=== PATIENT | female | born 1990 | race Caucasian/White ===

== ENCOUNTER → 2017-07-12 | Outpatient (CLI) | payer MEDICAID ==
[~2017-07-12] MED LIST: IBUP800T37 PO; OXYC-865 PO; PREN-127 PO
--- NOTE | 2017-07-15 11:46 | RADIOLOGY IMAGING REPORT ---
[place] [facility] [place] NAME: JACQUELINE NAVARRETE : [id number] MR: [id number] V: [id number] EXAM DATE: ORDERING PHYSICIAN: ABEBE HICKS TECHNOLOGIST: Angeles Soliman PROCEDURE:US RIGHT BREAST COMPLETE COMPARISON:None. INDICATIONS:rt breast lump/Palpable lump Rt breast upper outer quadrant. The patient is 10 weeks . FINDINGS: In the location of the patient's palpable findings in the approximate 9-10 o'clock position of the Right breast there a vague ill defined hypoechoic region that appears different than the surrounding breast tissue. Comparison images were taken of the upper outer quadrant of the Left breast which did not demonstrate a similar echogenicity. This could represent a focal area of inflammation however malignancy is not entirely excluded. Since the patient is 10 weeks it is opted not to do a mammogram today however close clinical follow-up is recommended and the patient should return for a repeat Right breast Ultrasound before she moves out of town on August 03, 2017 DIAGNOSTIC CATEGORY 3--PROBABLY BENIGN FINDING. RECOMMENDATIONS: CLINICAL EVALUATION. ONE MONTH FOLLOW-UP ULTRASOUND: RIGHT BREAST. TO BE PERFORMED BEFORE THE PATIENT MOVES ON AUGUST 03, 2017. IMPRESSION: BIRADS 3: Probably benign finding The patient should return for a follow-up Right breast Ultrasound before she moves out of town on August 03, 2017 to evaluate the ill defined hypoechoic region in the 9-10 o'clock position of the Right breast. Clinical follow-up also recommended. Dictated by: Francie Acuna M.D. on 07/12/2017 at 14:35 Transcribed by: MICAH on 07/15/2017 at 8:49 Approved by: Francie Acuna M.D. on 07/15/2017 at 11:45 [facility]
== END ==
LOC: US 04:07
PROVIDERS: ATTEND Obstetrics & Gynecology
DX: N63.11 Unspecified lump in the right breast, upper outer quadrant (principal); Z3A.10 10 weeks gestation of pregnancy

== ENCOUNTER 2017-07-25 23:06 | Inpatient (IN) | payer MEDICAID ==
[~2017-07-25] VITALS: Ht 160 cm; Wt 69.4 kg
[~2017-07-25 23:06] MED LIST changes: -HYDR2TAB4 PO; -MISO200T62 PO
--- NOTE | 2017-07-25 23:19 | ER Report ---
History and Physical Time Seen By MD: 23:19 Hx. of Stated Complaint: PATIENT HAS KNOWN MISCARRIAGE, PATIENT STATES CONTINOUS BLEEDING STARTED ABOUT 2029. PATIENT HAS HAD SMALL AMOUTN OF INTERMITENT BLEEDING SINCE SATURDAY HPI/ROS CHIEF COMPLAINT: miscarriage HISTORY OF PRESENT ILLNESS: This is a 27 year old female. 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 She has had small amount of intermittent bleeding since Saturday. Tonight at 2029 had onset of severe continuous bleeding, soaking multiple pads. She had a syncopal episode at home. Initial blood pressure here was 73 systolic. She was pale and weak and dizzy with sitting. Having lower abdominal cramping associated with this. 2 liters of normal saline were given and blood pressures in the 90s to 100s now. Has had a prior miscarriage with D&C last November, admitted here by Dr. Wright. Denies chest pain or shortness of breath. Has not had any problems with urination or bowels. Allergies: Coded Allergies: Penicillins (Verified Allergy, Intermediate, VOMITING., 07/25/17) Home Meds Discontinued Reported Medications Vits W-Ca,Fe,Fa(<1MG) ( VITAMINS) 1 Each Tablet, 1 EACH PO DAILY, TAB 12/01/16 Discontinued Scripts Oxycodone Hcl/Acetaminophen (PERCOCET 5-325 MG TABLET) 1 Each Tablet, 1-2 TAB PO Q4H Y for pain, #20 TAB 0 Refills Prov:DEMOND WRIGHT MD 12/02/16 Ibuprofen (IBUPROFEN) 800 Mg Tablet, 1 TAB PO Q8H Y for pain, #30 TAB 0 Refills TAKE WITH FOOD EVERY 8 HOURS Prov:DEMOND WRIGHT MD 12/02/16 Past Medical/Surgical History Right ankle surgery. Tonsillectomy. Reviewed Nurses Notes: Yes Hx Smoking: Yes Smoking Status: Former Smoker Exposure to Second Hand Smoke?: No Hx Alcohol Use: No Constitutional Vital Sign - Last 24 Hours 07/25/17 07/25/17 07/25/17 07/25/17 23:08 23:20 23:21 23:30 Temp 98.3 Pulse 68 73 Resp 23 22 B/P (MAP) 73/52 102/73 (83) 104/60 (75) Pulse Ox 100 98 O2 Delivery Room Air 07/25/17 07/25/17 07/26/17 07/26/17 23:36 23:51 00:00 00:06 Pulse 75 89 72 Resp 15 11 21 B/P (MAP) 97/65 (76) Pulse Ox 98 100 100 07/26/17 07/26/17 07/26/17 07/26/17 00:21 00:29 00:34 00:49 Pulse 81 71 78 82 Resp 20 23 22 19 Pulse Ox 100 07/26/17 07/26/17 01:00 01:04 Pulse 75 Resp 22 B/P (MAP) 100/59 (73) Physical Exam General Appearance: The patient is alert, is very anxious. Eyes: Pupils equal and round no injection. ENT: Moist mucous membranes. Respiratory: Breathing is normal, without distress. Cardiac: Tachycardia, normal rhythm. Gastrointestinal: Abdomen is tender in lower abdomen. Skin: No bruising or rashes. Pelvic exam: The vulva was normal no lesions. The vagina has significant amount of blood. Evacuated multiple clots from the vagina, but no identified products of conception. The cervix was pointing downward into a pool of blood. This was soaked up multiple times with gauze and ring forceps, but the blood puddle would form again right away hiding the cervical os from view. The uterus enlarged and tender. The adnexa had no masses. 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 DIFFERENTIAL DIAGNOSIS: After history and physical exam differential diagnosis was considered for incomplete miscarriage Medical Decision Making Data Points Result Diagram: 07/26/17 0009 07/26/17 0009 Laboratory Hematology Test 07/26/17 00:09 Red Blood Count 3.69 M/uL (4.17-5.56) Mean Corpuscular Volume 88.0 fL (80.0-96.0) Mean Corpuscular Hemoglobin 30.1 pg (26.0-33.0) Mean Corpuscular Hemoglobin Concent 34.2 g/dL (32.0-36.0) Red Cell Distribution Width 13.5 % (11.5-14.5) Mean Platelet Volume 7.1 fL (7.2-11.1) Neutrophils (%) (Auto) 67.7 % (39.4-72.5) Lymphocytes (%) (Auto) 24.9 % (17.6-49.6) Monocytes (%) (Auto) 5.8 % (4.1-12.4) Eosinophils (%) (Auto) 1.2 % (0.4-6.7) Basophils (%) (Auto) 0.4 % (0.3-1.4) Nucleated RBC Relative Count (auto) 0.0 /100WBC Neutrophils # (Auto) 7.0 K/uL (2.0-7.4) Lymphocytes # (Auto) 2.6 K/uL (1.3-3.6) Monocytes # (Auto) 0.6 K/uL (0.3-1.0) Eosinophils # (Auto) 0.1 K/uL (0.0-0.5) Basophils # (Auto) 0.0 K/uL (0.0-0.1) Nucleated RBC Absolute Count (auto) 0.01 K/uL Prothrombin Time 14.5 seconds (12.0-14.4) Prothromb Time International Ratio 1.12 Activated Partial Thromboplast Time 25 seconds (23-35) Sodium Level 139 mmol/L (137-145) Potassium Level 3.4 mmol/L (3.5-5.0) Chloride Level 109 mmol/L (98-107) Carbon Dioxide Level 17 mmol/L (22-31) Blood Urea Nitrogen 14 mg/dl (7-18) Creatinine 0.60 mg/dl (0.52-1.04) Glomerular Filtration Rate Calc > 60.0 Random Glucose 92 mg/dl (75-110) Calcium Level 7.9 mg/dl (8.4-10.2) Total Bilirubin 0.2 mg/dl (0.2-1.3) Aspartate Amino Transf (AST/SGOT) 17 U/L (0-35) Alanine Aminotransferase (ALT/SGPT) 22 U/L (0-56) Alkaline Phosphatase 75 U/L (0-126) Total Protein 5.4 gm/dl (6.3-8.2) Albumin 3.0 g/dl (3.5-5.0) Human Chorionic Gonadotropin, Qual Positive (NEGATIVE) Human Chorionic Gonadotropin, Quant 2716 mIU/ml Chemistry Test 07/26/17 00:09 White Blood Count 10.3 k/uL (4.5-11.0) Red Blood Count 3.69 M/uL (4.17-5.56) Hemoglobin 11.1 g/dL (12.0-16.0) Hematocrit 32.5 % (34.0-47.0) Mean Corpuscular Volume 88.0 fL (80.0-96.0) Mean Corpuscular Hemoglobin 30.1 pg (26.0-33.0) Mean Corpuscular Hemoglobin Concent 34.2 g/dL (32.0-36.0) Red Cell Distribution Width 13.5 % (11.5-14.5) Platelet Count 199 K/uL (150-450) Mean Platelet Volume 7.1 fL (7.2-11.1) Neutrophils (%) (Auto) 67.7 % (39.4-72.5) Lymphocytes (%) (Auto) 24.9 % (17.6-49.6) Monocytes (%) (Auto) 5.8 % (4.1-12.4) Eosinophils (%) (Auto) 1.2 % (0.4-6.7) Basophils (%) (Auto) 0.4 % (0.3-1.4) Nucleated RBC Relative Count (auto) 0.0 /100WBC Neutrophils # (Auto) 7.0 K/uL (2.0-7.4) Lymphocytes # (Auto) 2.6 K/uL (1.3-3.6) Monocytes # (Auto) 0.6 K/uL (0.3-1.0) Eosinophils # (Auto) 0.1 K/uL (0.0-0.5) Basophils # (Auto) 0.0 K/uL (0.0-0.1) Nucleated RBC Absolute Count (auto) 0.01 K/uL Prothrombin Time 14.5 seconds (12.0-14.4) Prothromb Time International Ratio 1.12 Activated Partial Thromboplast Time 25 seconds (23-35) Glomerular Filtration Rate Calc > 60.0 Calcium Level 7.9 mg/dl (8.4-10.2) Total Bilirubin 0.2 mg/dl (0.2-1.3) Aspartate Amino Transf (AST/SGOT) 17 U/L (0-35) Alanine Aminotransferase (ALT/SGPT) 22 U/L (0-56) Alkaline Phosphatase 75 U/L (0-126) Total Protein 5.4 gm/dl (6.3-8.2) Albumin 3.0 g/dl (3.5-5.0) Human Chorionic Gonadotropin, Qual Positive (NEGATIVE) Human Chorionic Gonadotropin, Quant 2716 mIU/ml Coagulation Test 07/26/17 00:09 Prothrombin Time 14.5 seconds Prothromb Time International Ratio 1.12 Activated Partial Thromboplast Time 25 seconds EKG/Imaging Imaging OB Ultrasound < 14 weeks Additional Pertinent history: Miscarriage COMPARISON STUDIES: None available FINDINGS: Uterus: Heterogeneous vascular debris within a thickened endometrium, likely related to retained products of conception or in progress. Maternal ovaries: Unremarkable Adnexa: No adnexal mass lesion or focal abnormality. Free pelvic fluid: none IMPRESSION: No live intrauterine gestation. There is heterogeneous vascular debris within a thickened endometrium, likely related to retained products of conception/ in progress. Follow-up beta hCG and pelvic ultrasound as clinically indicated. Report Dictated By: Dago Arellano MD at 07/26/2017 1:50 AM ED Course/Re-evaluation Clinical Indication for ER IV: Hydration, IV Access ED Course After initial evaluation, 2 liters of normal saline were infused rapidly. The blood pressures improved and she felt a little better. Pelvic exam as noted above. Patient is Opositive blood type; type and screen done. Ultrasound as noted above, consistent with incomplete . Discussed with Dr. Tan and recommended admission and Dr. Tan agreed to admit. Will give Cytotech 400mcg oral dose now and 200mcg every 6 hours. NPO except meds and pad counts. Decision to Disposition Date: Jul 26, 2017 Decision to Disposition Time: 01:51 Depart Departure Latest Vital Signs Vital Signs Date Time Temp Pulse Resp B/P (MAP) Pulse Ox O2 Delivery O2 Flow Rate FiO2 07/26/17 01:04 75 22 07/26/17 01:00 100/59 (73) 07/26/17 00:21 100 07/25/17 23:08 98.3 Room Air Impression: Primary Impression: Incomplete Additional Impression: Hypotension Condition: Condition Unchanged Disposition: Admitted from ER Problem Qualifiers Additional Impression: Hypotension Hypotension type: other hypotension type Qualified Codes: I95.89 - Other hypotension CECI LOPEZ MD Jul 25, 2017 23:19
[2017-07-25] MEDS ORDERED: EMS NS 0.9%(*) 1000 ML BAG 1,000 ML IV ONE ×2 (23:25)
[2017-07-26] VITALS (52 sets, daily range): BP systolic 77–108; BP diastolic 35–81; Ht 160 cm; Wt 69.4 kg
[2017-07-26 00:25] LABS: PLATELET COUNT, AUTOMATED 199 K/uL (150-450)
[2017-07-26 00:26] LABS: INR 1.12
[2017-07-26] MEDS ORDERED: MISOPROSTOL 200 MCG TAB PO ONE (01:35)
--- NOTE | 2017-07-26 01:57 | RADIOLOGY IMAGING REPORT ---
FACILITY: [facility] - [place] PATIENT NAME: Mary Carmen Martinez : 1990 MR: [id number] V: [id number] EXAM DATE: ORDERING PHYSICIAN: CECI LOPEZ TECHNOLOGIST: Location: [facility] - [place] Patient: Mary Carmen Martinez : 1990 Visit/Account:[id number] Date of Sevice: 07/25/2017 OB Ultrasound < 14 weeks Additional Pertinent history: Miscarriage COMPARISON STUDIES: None available FINDINGS: Uterus: Heterogeneous vascular debris within a thickened endometrium, likely related to retained prod ucts of conception or in progress. Maternal ovaries: Unremarkable Adnexa: No adnexal mass lesion or focal abnormality. Free pelvic fluid: none IMPRESSION: No live intrauterine gestation. There is heterogeneous vascular debris within a thickened endometrium , likely related to retained products of conception/ in progress. Follow-up beta hCG and pelv ic ultrasound as clinically indicated. Report Dictated By: Dago Arellano MD at 07/26/2017 1:50 AM Report E-Signed By: Dago Arellano MD at 07/26/2017 1:53 AM WSN:[id number]
[2017-07-26] MEDS ORDERED: HYDROmorphone HCL 2 MG/ML SDV IVP PRN (02:00)
[2017-07-26] MEDS ORDERED: HYDROmorphone HCL 2 MG TAB PO PRN (02:00)
[2017-07-26] MEDS ORDERED: LR(*) 1000 ML BAG 1,000 ML IV PRN (02:05)
[2017-07-26] MEDS ORDERED: DLR(*) 1000 ML BAG 1,000 ML IV ONE (02:07)
[2017-07-26] MEDS ORDERED: LR(*) 1000 ML BAG 1,000 ML ONE (02:10)
[2017-07-26] MEDS ORDERED: MORPHINE 4 MG/ML SDV IVP PRN (02:30)
[2017-07-26] MEDS ORDERED: ONDANSETRON 4 MG/2 ML VIAL IVP PRN (02:30)
[2017-07-26] MEDS: DLR(*) 1000 ML BAG 1,000 ML IV PRN ×2 (02:41→09:06)
[2017-07-26] MEDS: HYDROmorphone HCL 2 MG TAB PO PRN ×2 (03:13→08:08)
[2017-07-26 07:03] LABS: PLATELET COUNT, AUTOMATED 192 K/uL (150-450)
[2017-07-26] MEDS ORDERED: MISOPROSTOL 200 MCG TAB PO SCH (08:00)
[2017-07-26] MEDS: MISOPROSTOL 200 MCG TAB PO SCH ×2 (08:07→15:17)
--- NOTE | 2017-07-26 10:29 | History & Physical ---
History of Present Illness Age of Patient: 27 : 3 Para or TPAL: 1 Estimated Gestational Age: 10 Chief Complaint miscarriage History of Present Illness presented through the ER with bleeding and feeling faint. She arrived bleeding heavily vaginally and u/s showing vacular thickened endometrium c/w SAB in progress. She had low BP upon arrival as well which responded to fluid resuscitation. She was observed overnight with oral Cytotec to manage and bleeding has significantly decreased. Pt reports she is moving to [place] in 1 week and does not want this to be an issue during this transition. She is requesting definitive resolution. She has had one prior miscarriage treated with dilation and curettage and so is familiar with this method of management. Her blood type is positive. Her latest Hgb was 8.9 dropping 2 grams from her initial. Currently she feels weak and lethargic and is pale. History Allergies: Coded Allergies: Penicillins (Verified Allergy, Intermediate, VOMITING., 07/25/17) Social History: Pt and her significant other just moved from [place], as he was admitted to the [facility]. Med Rec Home Meds Discontinued Reported Medications Vits W-Ca,Fe,Fa(<1MG) ( VITAMINS) 1 Each Tablet, 1 EACH PO DAILY, TAB 12/01/16 Discontinued Scripts Oxycodone Hcl/Acetaminophen (PERCOCET 5-325 MG TABLET) 1 Each Tablet, 1-2 TAB PO Q4H Y for pain, #20 TAB 0 Refills Prov:DEMOND DELR IO MD 12/02/16 Ibuprofen (IBUPROFEN) 800 Mg Tablet, 1 TAB PO Q8H Y for pain, #30 TAB 0 Refills TAKE WITH FOOD EVERY 8 HOURS Prov:DEMOND DEL RIO MD 12/02/16 Review of Systems All Systems Reviewed/Normal: Yes, Except as Noted Other as per HPI Exam General Exam Vital Signs Vital Signs Date Time Temp Pulse Resp B/P (MAP) Pulse Ox O2 Delivery O2 Flow Rate FiO2 07/26/17 10:07 54 16 78/41 (53) 100 Room Air 07/26/17 07:15 98.2 General Apperance: Alert/Awake/No Acute Distress, Other (pale) Neuro: No Gross deficits Cardiovascular: Regular Rate and Rhythm Respiratory: No Respiratory Distress, Clear to Auscultation Abdomen: Soft, Non-Tender, Non-Distended Integumentary: Skin Intact without Lesions or Rash, Pallor Psychological: Alert & Oriented X3, Appropriate Mood & Affect Medical Decision Making Data Points Result Diagram: 07/26/17 0620 07/26/17 0009 VTE Prophylasis: Adult Deep Vein Thrombosis/Pulmonary: No Pharmacological Contraindicati: Pt at Low Risk for VTE Mechanical Contraindications: Pt at Low Risk for VTE Assessment and Plan Problems: (1) Incomplete Status: Acute Assessment & Plan: Reviewed the risks and management of this problem and pt requesting definitive resolution. Considering her already blood loss, I think this is a good idea. Weighing risks/benefits of transfusion and will get blood count now to see where she is at. Planning dilation and suction curettage. ABEBE HICKS MD Jul 26, 2017 10:29
[2017-07-26 10:30] LABS: PLATELET COUNT, AUTOMATED 199 K/uL (150-450)
[2017-07-26] MEDS ORDERED: NORMOSOL R SOLN(*) 1000 ML BAG 1,000 ML IV ONE (10:35)
[2017-07-26] MEDS ORDERED: FAMOTIDINE 20 MG TAB PO ONE (11:10)
[2017-07-26] MEDS ORDERED: NS(*) 0.9% 500 ML BAG 500 ML IV PRN (11:10)
[2017-07-26] MEDS ORDERED: MIDAZOLAM 2 MG/2 ML VIAL IVP PRN (11:10)
[2017-07-26] MEDS ORDERED: cefOXitin/DEX(*) 2GM/50ML PREM 50 ML IVPB ONE (12:00)
--- NOTE | 2017-07-26 12:33 | RADIOLOGY IMAGING REPORT ---
FACILITY: [facility] PATIENT NAME: Mary Carmen Martinez : 1990 MR: [id number] V: [id number] EXAM DATE: ORDERING PHYSICIAN: ABEBE HICKS TECHNOLOGIST: [place] [facility] [place] Carmen [place] : 1990 Visit/Account:[id number] Date of Sevice: 07/26/2017 OB Ultrasound < 14 weeks Additional Pertinent history: Suspected miscarriage. COMPARISON STUDIES: 07/26/2017. FINDINGS: Gestational sac: Not visualized. Yolk sac: Not visualized. pole: Not visualized. Uterus: Uterus shows no focal normality. The endometrium shows debris with color-flow present which c ould be residual blood products. No well-defined lesion or fluid. Maternal ovaries: Right ovary is normal normal blood flow. Left ovary is not visualized. Adnexa: No adnexal mass lesion or focal abnormality. Free pelvic fluid: none IMPRESSION: 1. No indication of intrauterine or extrauterine . There is some debris in the endometrium w ith some color flow which could be due to blood products. Suggest follow-up clinically and laboratory values to assess for early . 2. Left ovary was not visualized. Report Dictated By: Too Valentin at 07/26/2017 12:26 PM Report E-Signed By: Too Valentin at 07/26/2017 12:29 PM WSN:[id number]
[2017-07-26] MEDS ORDERED: LIDOCAINE/SOD BICARB 8.4% SYR ONE (12:43)
[2017-07-26] MEDS ORDERED: SUCCINYLCHOL CHL 200MG/10ML VL ONE (13:23)
[2017-07-26] MEDS ORDERED: PROPOFOL EMUL(*) 10MG/ML 20 ML 20 ML ONE (13:23)
[2017-07-26] MEDS ORDERED: ONDANSETRON 4 MG/2 ML VIAL ONE (13:23)
[2017-07-26] MEDS ORDERED: LIDOCAINE MPF 1% 5 ML VIAL ONE (13:23)
[2017-07-26] MEDS ORDERED: DEXAMETHASONE SOD PHOS 10MG/ML ONE (13:23)
--- NOTE | 2017-07-26 13:46 | Post Operative Note ---
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
--- NOTE | 2017-07-26 13:59 | OPERATIVE REPORT 1 ---
EVENT DATE: July 26, 2017 SURGEON: Catarino Lowery MD ANESTHESIOLOGIST: Modesto Buitrago MD ANESTHESIA: General LMA PREOPERATIVE DIAGNOSIS Incomplete spontaneous . POSTOPERATIVE DIAGNOSIS Incomplete spontaneous . PROCEDURE PERFORMED Suction dilation and curettage. ESTIMATED BLOOD LOSS Minimal. FLUIDS 350 mL IV crystalloid plus transfusing 2 units of packed red blood cells. FINDINGS Uterus retroverted, sounded to a depth of 9 cm. Regular products of conception evacuated. PROCEDURE IN DETAIL The patient was brought to the operating room with a working IV, placed in the dorsal supine position, and she was placed under general LMA anesthesia and moved to the dorsal lithotomy position. She was prepped and draped in the usual sterile fashion. Weighted speculum was placed in the vagina. The cervix was grasped on the anterior lip with a single tooth tenaculum. It was sounded to a depth of 9 cm, retroverted, and 9 curved suction curette was selected and assembled. The cervix was grasped on the anterior lip with a single tooth tenaculum, and the cervix was carefully dilated to a size 10 Hegar dilator. The curved suction curette was passed through the cervix into the uterus and suction was applied to a pressure of 40 mmHg and rotated about while it was carefully withdrawn. There were products of conception and clot evacuated. A sharp bovine curette was used to curettage all four quadrants of the uterus until gritty texture was palpable. An additional pass with the curved suction curette completed evacuation with no visible complications and scant amount of bleeding upon completion. All instruments were removed from the uterus and the cervix. She tolerated the procedure well. Speculum was removed. The patient was returned to the dorsal supine position, awakened from general anesthesia in stable condition and taken to recovery. [facility]
[2017-07-26] MEDS ORDERED: MISO200T62 PO (14:02)
[2017-07-26] MEDS ORDERED: HYDR2TAB4 PO (14:02)
== END 2017-07-26 19:00 | disposition home or self-care (01) | DRG 770 ==
LOC: ER 23:13 → PED 07-26 01:48
PROVIDERS: ADMIT Obstetrics & Gynecology; ATTEND Obstetrics & Gynecology
PROC: 30233N1 Transfusion of Nonautologous Red Blood Cells into Peripheral Vein, Percutaneous Approach (ICD-10-PCS; 2017-07-26)
PROC: 10D17ZZ Extraction of Products of Conception, Retained, Via Natural or Artificial Opening (ICD-10-PCS; principal; 2017-07-26 13:10)
DX: O03.1 Delayed or excessive hemorrhage following incomplete spontaneous abortion (principal); I95.9 Hypotension, unspecified; R55 Syncope and collapse; Y92.009 Unspecified place in unspecified non-institutional (private) residence as the place of occurrence of the external cause; Z88.0 Allergy status to penicillin; Z87.891 Personal history of nicotine dependence; Z3A.14 14 weeks gestation of pregnancy
CPT/HCPCS: 36415; 76801; 76817; 82040; 82247; 82310; 82374; 82435; 82565; 82947; 84075; 84132; 84155; 84295; 84450; 84460; 84520; 84702; 84703; 85025; 85610; 85730; 86850; 86900; 86901; 86920; 88305; 96360; 99285; J0330; J0694; J1100; J2001; J2405; J2704; J7040; J7120; P9016

== ENCOUNTER → 2017-07-25 | Outpatient (CLI) | payer MEDICAID ==
[~2017-07-25] MED LIST changes: +HYDR2TAB4 PO; +MISO200T62 PO
[2017-07-26 09:10] VITALS: BMI 27.1
== END ==
LOC: AMB 22:42
PROVIDERS: ATTEND Nurse Practitioner
DX: N93.9 Abnormal uterine and vaginal bleeding, unspecified (principal); R10.9 Unspecified abdominal pain; M54.9 Dorsalgia, unspecified; R53.1 Weakness; Z3A.12 12 weeks gestation of pregnancy
CPT/HCPCS: A0425; A0427

== ENCOUNTER → 2017-07-30 | Outpatient (CLI) | payer MEDICAID ==
[2017-07-26 09:10] VITALS: BMI 27.1
[~2017-07-30] MED LIST changes: +HYDR2TAB4 PO; +MISO200T62 PO
--- NOTE | 2017-07-30 13:57 | RADIOLOGY IMAGING REPORT ---
[place] [facility] [place]IENT NAME: JACQUELINE NAVARRETE : [id number] MR: [id number] V: [id number] EXAM DATE: [id number] ORDERING PHYSICIAN: ABEBE HICKS TECHNOLOGIST: Fox Pizano PROCEDURE:US RIGHT BREAST COMPARISON:Ultrasound 07/12/17 INDICATIONS:ONE MONTH F/U FINDINGS: An Ultrasound of the Right breast 9-10 o'clock position was performed by the technologist and myself. The previously described hypoechoic lesion in the 9 o'clock position is no longer visualized. The patient does have a palpable area in the 9 o'clock position, 3cm from the nipple which appears to represent normal fibroglandular tissue. No definable mass or cysts. DIAGNOSTIC CATEGORY 1--NEGATIVE. RECOMMENDATIONS: CLINICAL EVALUATION. IMPRESSION: BIRADS 1: Negative Recommend the patient begins screening mammography at the age of 42. The patient's area of palpable concern in the 9 o'clock position Right breast should have matched clinically but appears to correspond to an island of fibroglandular tissue. Dictated by: Too Noguera M.D. on 07/30/2017 at 10:51 Transcribed by: MICAH on 07/30/2017 at 13:44 Approved by: Too Noguera M.D. on 07/30/2017 at 13:56 [facility]
== END ==
LOC: US 02:41
PROVIDERS: ATTEND Obstetrics & Gynecology
DX: N63.11 Unspecified lump in the right breast, upper outer quadrant (principal)